=== PATIENT | male | born 1950 | race Caucasian/White ===

== ENCOUNTER 2019-03-21 18:43 | Emergency (ER) | payer OTHER ==
[2019-03-21 18:50] VITALS: BP 150/80; PULSE 89; TEMP 99.4; BMI 30.7
[2019-03-21] MEDS ORDERED: KETOROLAC TROMETHAMINE 60 MG/2 ML VIAL IM ONE (19:50)
[2019-03-21] MEDS ORDERED: KETOROLAC TROMETHAMINE 60 MG/2 ML VIAL ONE (19:54)
--- NOTE | 2019-03-21 19:55 | PDOC ---
History of Present Illness - General Chief Complaint: Rash Stated Complaint: SHINGLES Time Seen by Provider: 03/21/19 18:57 - History of Present Illness Initial Comments: 03/21/19 19:51 68-year-old male diagnosed with shingles on his right leg started on acyclovir yesterday presents for evaluation of pain Past History - Past Medical History Allergies/Adverse Reactions: Allergies Allergy/AdvReac Type Severity Reaction Status Date / Time No Known Allergies Allergy Verified 03/21/19 18:50 Home Medications: Ambulatory Orders Valacyclovir HCl [Valtrex -] 1,000 mg PO TID 03/21/19 COPD: No Psychiatric Problems: Yes (BIPOLAR) - Suicide/Smoking/Psychosocial Hx Smoking History: Never smoked Have you smoked in the past 12 months: No Hx Alcohol Use: No Review of Systems - Review of Systems Constitutional: No: Fever Integumentary: Yes: Rash *Physical Exam - Vital Signs Last Vital Signs Temp Pulse Resp BP Pulse Ox 99.4 F 89 18 150/80 94 L 03/21/19 18:45 03/21/19 18:45 03/21/19 18:45 03/21/19 18:45 03/21/19 18:45 - Physical Exam Comments: 03/21/19 19:55 HEAD: NC/AT EYES: Conjuntiva clear MS: Full ROM in all joints without edema NEUROLOGIC: No gross sensory or motor deficits, NVID SKIN: Normal color and temperature there is a vesicular rash on the right thigh circumferentially without indication of secondary infection. Medical Decision Making - Medical Decision Making 03/21/19 19:55 Patient has been taking acyclovir for shingles for one day. I will refer him back to his primary care physician treat his pain with a one-time shot of Toradol. *DC/Admit/Observation/Transfer Diagnosis at time of Disposition: Shingles - Discharge Dispostion Disposition: HOME Condition at time of disposition: Stable Decision to Admit order: No - Referrals - Patient Instructions Printed Discharge Instructions: Shingles, DI for Shingles Additional Instructions: Continue the acyclovir as prescribed. Tylenol and Motrin as directed for pain. Return to the emergency room for worsening symptoms and follow-up with your primary care physician in one to 2 days for further evaluation and treatment options. - Post Discharge Activity
== END 2019-03-21 20:14 | disposition home or self-care (01) ==
LOC: JERFT 18:43
PROC: 3E0233Z Introduction of Anti-inflammatory into Muscle, Percutaneous Approach (ICD-10-PCS; principal; 2019-03-21)
DX: B02.8 Zoster with other complications (principal)
CPT/HCPCS: 96372; 99281-25

== ENCOUNTER 2019-12-25 07:47 | Emergency (ER) | payer OTHER ==
[2019-12-25 08:02] VITALS: BP 145/87; PULSE 85; TEMP 97.9; BMI 30.7
[2019-12-25] MEDS ORDERED: ACETAMINOPHEN 500 MG TABLET (FP) PO ONE (08:36)
[2019-12-25] MEDS ORDERED: ACETAMINOPHEN 500 MG TABLET (FP) ONE (08:46)
--- NOTE | 2019-12-25 08:50 | PDOC ---
History of Present Illness - General Chief Complaint: Injury Stated Complaint: FALL Time Seen by Provider: 12/25/19 08:12 History Source: Patient Exam Limitations: No Limitations - History of Present Illness Initial Comments: 12/25/19 08:44 Patient is a 69-year-old male who presents to the ED with complaint of right elbow, right knee and right ankle pain since last night [facility] He states he was picking up his 's prescriptions, and when he went to leave he did not notice the basket on the floor. He tripped over it landing on his right side. He has applied ice and heat without much relief. He denies any numbness or tingling. He presents today walking without assistance but with a slight limp. He denies hitting his head or any LOC. Past History - Past Medical History Allergies/Adverse Reactions: Allergies Allergy/AdvReac Type Severity Reaction Status Date / Time No Known Allergies Allergy Verified 12/25/19 07:56 Home Medications: Ambulatory Orders Albuterol Sulfate [Proair Hfa] 2 inh IN Q4H PRN 12/25/19 Benztropine Mesylate 1 mg PO BID 12/25/19 Montelukast Sodium [Singulair] 10 mg PO HS 12/25/19 Quetiapine Fumarate [Seroquel -] 100 mg PO HS 12/25/19 Risperidone 2 mg PO BID 12/25/19 Venlafaxine HCl ER [Effexor Xr -] 150 mg PO DAILY 12/25/19 COPD: No Psychiatric Problems: Yes (BIPOLAR) - Psycho Social/Smoking Cessation Hx Smoking History: Never smoked Have you smoked in the past 12 months: No Hx Alcohol Use: No Review of Systems - Review of Systems Comments:: 12/25/19 08:45 - Review of Systems Able to Perform ROS?: Yes Constitutional: No: Fever, Chills, Loss of Appetite, Night Sweats, Weakness HEENTM: No: Eye Pain, Vision changes, Ear Pain, Throat Pain, Throat Swelling, Mouth Pain, Difficulty Swallowing Respiratory: No: Cough, Shortness of Breath, Wheezing, Sputum Production Cardiac (ROS): No: Chest Pain, Chest Tightness, Palpitations, Irregular Heart Beat, Edema ABD/GI: No: Nausea, Vomiting, Abdominal Pain, Diarrhea Musculoskeletal: No: Muscle Pain, Back Pain, Muscle Weakness, Neck Pain; Positive R elbow, R knee and R ankle pain Integumentary: No: Lesions, Rash Neurological: No: Headache, Numbness, Tingling, Weakness, Speech Difficulties *Physical Exam - Vital Signs Last Vital Signs Temp Pulse Resp BP Pulse Ox 97.9 F 85 20 145/87 94 L 12/25/19 07:59 12/25/19 07:59 12/25/19 07:59 12/25/19 07:59 12/25/19 07:59 - Physical Exam 12/25/19 08:46 - Physical Exam General Appearance: Nourished, Appropriately Dressed, No Distress HEENT: EOMI, Normal Voice, No Muffled/Hoarse voice, No Nasal Congestion, No Rhinorrhea, Hearing Grossly Normal Neck: Supple, No Lymphadenopathy (R), No Lymphadenopathy (L), No Rigidity, No Decreased range of motion Respiratory/Chest: Lungs Clear, Normal Breath Sounds. No Respiratory Distress, No Accessory Muscle Use Cardiovascular: Regular Rhythm, Regular Rate, S1, S2 Musculoskeletal: Normal Inspection. Mild tenderness to the R elbow to palpation but with FROM without difficulty, Mild medial knee tenderness to palpation. ROM of the R knee from 0-115 degrees actively. R ankle with posterolateral ankle tenderness to palpation. No tenderness over the fibula to palpation. DP/ PT pulses 2+, no step off appreciated. FROM of the R ankle. Extremity: Normal Capillary Refill, Normal Inspection Integumentary: Normal Color, Dry. No Rash Neurologic: journey lineman II-XII NML intact, Fully Oriented, Alert, Normal Mood/Affect, Normal Response ED Treatment Course - RADIOLOGY Radiology Studies Ordered: Category Date Time Status ANKLE-RIGHT [RAD] Stat Radiology 12/25/19 08:37 Ordered ELBOW-RIGHT [RAD] Stat Radiology 12/25/19 08:37 Ordered KNEE 3 POS-RIGHT [RAD] Stat Radiology 12/25/19 08:37 Ordered Medical Decision Making - Medical Decision Making 12/25/19 08:48 Assessment: Patient is a 69-year-old male with a mechanical fall that he sustained yesterday night. He has right elbow, right ankle and right knee pain. Plan: -Right elbow x-ray -Right ankle x-ray -Right knee x-ray -Tylenol p.o. -Will reassess 12/25/19 09:15 The patient has been made aware that all of his x-rays are negative for acute pathology. He should follow-up with his primary doctor within 1 to 2 days for repeat evaluation. He can apply ice and heat alternating to help with pain. He can take Tylenol for pain. He understands and agrees with this treatment plan and the patient is stable for discharge. Discharge - Discharge Information Problems reviewed: Yes Clinical Impression/Diagnosis: Contusion of right elbow Qualifiers: Encounter type: initial encounter Qualified Code(s): S50.01XA - Contusion of right elbow, initial encounter Contusion of right knee Qualifiers: Encounter type: initial encounter Qualified Code(s): S80.01XA - Contusion of right knee, initial encounter Right ankle sprain Qualifiers: Encounter type: initial encounter Involved ligament of ankle: other ligament Qualified Code(s): S93.491A - Sprain of other ligament of right ankle, initial encounter Condition: Stable Disposition: HOME - Follow up/Referral Referrals: Lloyd Thornton MD [Primary Care Provider] - - Patient Discharge Instructions Patient Printed Discharge Instructions: DI for Contusion Additional Instructions: Ice and elevate your right ankle, knee and elbow. You can apply ice alternating with heat to help with pain. Take Tylenol or ibuprofen for pain. Follow-up with your primary doctor within 1 to 2 days for repeat evaluation. - Post Discharge Activity
== END 2019-12-25 09:23 | disposition home or self-care (01) ==
LOC: JER 07:47 → JERFT 07:47
DX: S93.401A Sprain of unspecified ligament of right ankle, initial encounter (principal); S50.01XA Contusion of right elbow, initial encounter; S80.01XA Contusion of right knee, initial encounter; W18.09XA Striking against other object with subsequent fall, initial encounter; Y93.89 Activity, other specified; Y92.512 Supermarket, store or market as the place of occurrence of the external cause; Y99.8 Other external cause status
CPT/HCPCS: 73070-TC-RT-FY; 73562-TC-RT-FY; 73610-TC-RT-FY; 99281-25

== ENCOUNTER 2021-06-29 13:45 | Emergency (ER) | payer BC, OTHER ==
[2021-06-29 13:52] VITALS: BP 142/85; PULSE 81; BMI 29.5
== END 2021-06-29 14:37 | disposition home or self-care (01) ==
LOC: JERFT 13:45
DX: K05.6 Periodontal disease, unspecified (principal); K02.9 Dental caries, unspecified; L04.0 Acute lymphadenitis of face, head and neck
CPT/HCPCS: 99281-25

== ENCOUNTER 2021-07-05 14:33 | Emergency (ER) | payer OTHER, BC ==
[2021-07-05 14:50] VITALS: BP 136/83; PULSE 79; TEMP 98.7; BMI 31.0
[2021-07-05] MEDS ORDERED: LIDOCAINE 5% TOPICAL PATCH TP ONE (15:32)
[2021-07-05] MEDS ORDERED: ACETAMINOPHEN 325 MG TABLET (FP) PO ONE (15:32)
[2021-07-05] MEDS ORDERED: LIDOCAINE 5% TOPICAL PATCH ONE (15:34)
[2021-07-05] MEDS ORDERED: ACETAMINOPHEN 325 MG TABLET (FP) ONE (15:34)
== END 2021-07-05 18:42 | disposition home or self-care (01) ==
LOC: JER 14:33
DX: S13.4XXA Sprain of ligaments of cervical spine, initial encounter (principal); S09.90XA Unspecified injury of head, initial encounter; W01.198A Fall on same level from slipping, tripping and stumbling with subsequent striking against other object, initial encounter
CPT/HCPCS: 70450-TC; 72125-TC; 99284-25

== ENCOUNTER 2025-08-01 09:11 | Emergency (ER) | payer OTHER ==
[2025-08-01 10:33] VITALS: RESP 18; BMI 27.3
[2025-08-01 10:55] LABS: ABSOLUTE IMMATURE GRANULOCYTES 0.02 x10^3/uL (0.0-0.031); BASOPHILS # 0.02 x10^3/uL (0.01-0.08); EOSINOPHIL % 0.5 % (0.8-7.0); EOSINOPHILS # 0.06 x10^3/uL (0.04-0.54); MCHC 35.0 g/dl (32.3-36.5); MEAN CELL VOLUME 95.5 fl (79.0-92.2); MEAN PLT VOLUME 9.9 fl (9.4-12.4); MONOCYTE # 0.67 x10^3/uL (0.30-0.82); MONOCYTE % 5.8 % (5.3-12.2); RDW 12.6 % (12.2-16.6)
[2025-08-01 11:12] LABS: GLUCOSE,RANDOM 134.0 mg/dL (74-106); TOT PROT 7.4 g/dl (6.4-8.2)
[2025-08-01 11:13] LABS: CO2 21.0 mmol/L (21-32)
[2025-08-01 11:14] LABS: ALK PHOS 91.0 U/L (40-150)
[2025-08-01 11:17] LABS: CREATININE 0.67 mg/dL (0.55-1.3); SGOT/AST 24.0 U/L (5-34); SGPT/ALT 28.0 U/L (0-55)
[2025-08-01 11:44] LABS: EPI CELLS 1 /uL (0-25.1); HYALINE CASTS 0 /uL (0-3.1); URINE APPEARANCE CLEAR; URINE BACTERIA 2 /uL (0-1359); URINE BILIRUBIN NEGATIVE (NEGATIVE); URINE COLOR YELLOW; URINE GLUCOSE (UA) NEGATIVE (NEGATIVE); URINE KETONE TRACE (NEGATIVE); URINE LEUK ESTERASE NEGATIVE (NEGATIVE); URINE NITRITE NEGATIVE (NEGATIVE); URINE PROTEIN NEGATIVE (NEGATIVE); URINE RBC 252 /uL (0-23.9); URINE UROBILINOGEN 0.2 mg/dL (0.2-1.0); URINE WBC 2 /uL (0-25.8)
[2025-08-01 15:35] VITALS: BP 167/72; PULSE 72; TEMP 97
== END 2025-08-01 15:35 | disposition home or self-care (01) ==
LOC: JER 09:11
PROC: 0T9B70Z Drainage of Bladder with Drainage Device, Via Natural or Artificial Opening (ICD-10-PCS; principal; 2025-08-01)
DX: R33.9 Retention of urine, unspecified (principal)
CPT/HCPCS: 36415; 76775-TC; 80053; 81003; 85025; 87086; 99284-25